=== PATIENT | male | born 1960 | race Caucasian/White ===

== ENCOUNTER 2016-07-11 07:49 | Outpatient (CLI) | payer OTHER ==
[2016-07-11 16:39] LABS: #Basophils 0.1 thou/uL (0.0-0.2); #Eosinphils 0.2 thou/uL (0.0-0.7); #Lymphocytes 1.2 thou/uL (1.20-3.40); #Monocytes 0.8 thou/uL (0.11-0.59); %Basophils 1.6 % (0.0-1.0); %Eosinophils 2.8 % (0.0-10.0); %Monocytes 11.3 % (0.0-10.0); Hematocrit 50.5 % (42.0-52.0); Mean Platelet Volume 7.5 fL (7.4-10.4); Red Blood Cell (RBC) Count 5.51 mill/uL (4.70-6.10); White Blood Cell (WBC) Count 7.4 thou/uL (4.8-10.8)
[2016-07-11 16:58] LABS: Hemoglobin A1c 5.2 % (4.0-6.0)
[2016-07-11 17:05] LABS: ALT (SGPT) 80 U/L (0-55); AST (SGOT) 83 U/L (5-34); Alkaline Phosphatase 77 U/L (40-150); Anion Gap 13 mmol/L (10-20); BUN (Urea Nitrogen) 14 mg/dL (8.4-25.7); Bilirubin, Total 1.1 mg/dL (0.2-1.2); Calc. Creatinine Clearance 0 mL/min (70-130); Calcium 9.2 mg/dL (7.8-10.44); Carbon Dioxide 28 mmol/L (22-29); Chloride 107 mmol/L (98-107); Estimated GFR-MDRD 78; Globulin 2.3 g/dL (2.4-3.5); LDL Cholesterol, Calculated 114 mg/dL; Protein, Total 6.5 g/dL (6.0-8.3)
== END 2016-07-11 07:50 ==
LOC: LABLEX 07:49
PROVIDERS: ATTEND Family Medicine
DX: Z00.00 Encounter for general adult medical examination without abnormal findings (principal)
CPT/HCPCS: 80053; 80061; 83036; 84443; 85025; G0103

== ENCOUNTER 2018-06-27 13:16 | Outpatient (CLI) | payer OTHER ==
--- NOTE | 2018-06-27 20:07 | RAD ---
RIGHT HIP THREE VIEWS: 06/27/2018 FINDINGS: No fracture or area of bony destruction is seen. The joint space is normal in width, and the articul ar surfaces are smooth. Bony spurring around the joint is very minimal. The adjacent pubic ring doug ears intact. There may be a small amount of sclerosis around the right SI joint. IMPRESSION: No acute findings. POS: HOME
--- NOTE | 2018-06-27 20:10 | RAD ---
LUMBAR SPINE THREE VIEWS: 06/27/1819 Grade II spondylolisthesis of L5 on S1 is present along with degeneration of the L5-S1 disc. While it is difficult to be certain without oblique views, I believer there are pars defects present. No frac tures are seen at other lumbar levels. Disc spaces are normal in height elsewhere. There is slight sc lerosis of the right SI joint. IMPRESSION: Advanced grade II spondylolisthesis of L5 on S1 with a degenerated disc at this level. MRI would be u seful in determining what neural impingement may be present. POS: HOME
== END 2018-06-27 13:17 | disposition home or self-care (01) ==
LOC: BURRAD 13:16
PROVIDERS: ATTEND Nurse Practitioner
DX: M25.551 Pain in right hip (principal); M43.17 Spondylolisthesis, lumbosacral region; M47.817 Spondylosis without myelopathy or radiculopathy, lumbosacral region
CPT/HCPCS: 72100

== ENCOUNTER 2021-09-11 18:21 | Emergency (ER) | payer OTHER, BC | END 2021-09-11 19:14 | disposition home or self-care (01) | LOC: BURERS 18:21 | DX: S46.012A Strain of muscle(s) and tendon(s) of the rotator cuff of left shoulder, initial encounter (principal); I10 Essential (primary) hypertension; E03.9 Hypothyroidism, unspecified; W01.0XXA Fall on same level from slipping, tripping and stumbling without subsequent striking against object, initial encounter ==

== ENCOUNTER 2022-09-03 17:10 | Emergency (ER) | payer BC ==
[2022-09-03] MEDS ORDERED: HYDROcodone/Acetaminophen 10/325 mg Tablet ONE (17:32)
[2022-09-03] MEDS ORDERED: Ketorolac Tromethamine 60 MG/2 ML VIAL ONE (17:32)
== END 2022-09-03 17:58 | disposition home or self-care (01) ==
LOC: BURERS 17:10
DX: M54.42 Lumbago with sciatica, left side (principal); I10 Essential (primary) hypertension
CPT/HCPCS: 96372; 99283; J1885